=== PATIENT | male | born 1995 | race Caucasian/White ===

== ENCOUNTER 2025-02-19 23:53 | Observation (INO) | payer OTHER, SELFPAY ==
[2025-02-19 18:09] VITALS: BP 164/73; BMI 27.4
[2025-02-19 20:18] LABS: % Basophils 0.6 % (0-2); % Eosinophils 0.6 % (0-6); % Immature Granulocytes 0.6 % (0-0.5); % Lymphocytes 13.5 % (20.5-51.1); % Monocytes 6.1 % (1.7-9.3); % Neutrophils 78.6 % (42.2-75.2); Absolute Basophils 0.1 10^3/uL (0-0.2); Absolute Eosinophils 0.1 10^3/uL (0-0.7); Absolute Immature Granulocytes 0.1 10^3/uL (0-0.05); Absolute Lymphocytes 2.7 10^3/uL (1.2-3.4); Absolute Monocytes 1.2 10^3/uL (0.1-0.6); Absolute Neutrophils 15.4 10^3/uL (1.4-6.5); Hematocrit 55.1 % (39.0-52.0); Hemoglobin 18.8 g/dL (13.0-18.0); Mean Corp Hgb Conc. 34.1 g/dL (33.0-37.0); Mean Corpuscular Hgb 31.8 pg (27.0-31.0); Mean Corpuscular Volume 93.1 fL (80.0-94.0); Mean Platelet Volume 10.1 fL (7.4-10.4); Nucleated Red Blood Cells % 0 % (-); Platelet Count 244 10^3/uL (130-400); Red Blood Cell Count 5.92 10^6/uL (4.70-6.10); Red Cell Dist. Width 13.3 % (11.5-14.5); White Blood Cell Count 19.6 10^3/uL (4.8-10.8)
[2025-02-19] MEDS: XYLOCAINE VISCOUS CUP 15 ML S (20:18)
[2025-02-19 20:32] LABS: ALT (SGPT) 33 U/L (0-50); AST (SGOT) 32 U/L (17-59); Albumin 4.2 g/dl (3.5-5.0); Alkaline Phosphatase 93 U/L (38-126); Blood Urea Nitrogen 11 mg/dl (9-20); Calcium 9.4 mg/dl (8.4-10.2); Carbon Dioxide 31 mmol/L (22-30); Chloride 102 mmol/L (98-107); Estimated Creatinine Clearance 120 ml/min; Glucose 93 mg/dl (70-99); Potassium 4.3 mmol/L (3.5-5.1); Sodium 141 mmol/L (135-145); Total Protein 7.3 g/dl (6.3-8.2); eGFR > 60.00
[2025-02-19 21:25] VITALS: BP 160/81
--- NOTE | 2025-02-19 21:46 | ED.SKININJ ---
HPI-Injury
General
Chief Complaint: Anal/Rectal Problem
Source: patient
Exam Limitations: none
Time Seen by Provider: 02/19/25 19:03
Nursing documentation reviewed up to this point in time: agreed with
History of Present Illness-Injury
Initial Injury comments:
29 yo male with no significant pmhx presents for rectal pain he thinks is from hemorrhoids. Has had no rectal bleeding. He feels a painful lump in the anal area. Denies fever/chills. Denies abdominal pain, denies n/v/d/c.
Past History
Past History
ED Past Medical History: None
ED Past Surgical History: Orthopedic
Social History
Tobacco: Non-smoker
Alcohol: Occasional
Personal: Single
Employment: Employed
Review of Systems
Review of Systems
Allergies reviewed?: Yes
All Other Systems: ROS reviewed and negative except as documented in HPI and ROS
Constitutional: Denies fever or chills
ABD/GI: Reports other (rectal pain); Denies abdominal pain, nausea, vomiting or diarrhea
: Denies dysuria, frequency or difficulty voiding
Musculoskeletal: Reports no symptoms
Skin: Reports no symptoms
Neurological: Reports no symptoms
Phy Exam
Physical Exam
Physical Exam:
GENERAL: No acute distress. A&Ox3.
CONSTITUTIONAL: Afebrile.
EYES: clear, conjunctivae normal
ENMT: moist mucus membranes, Pharynx nl
RESPIRATORY: Regular respirations, nonlabored, lungs clear.
CARDIOVASCULAR: Regular rate and rhythm, no murmurs, no rubs.
GI: Soft, nontender, normal BS
Rectal: No external hemorrhoids, anus and perianal area appear normal, no palpable masses, exquisitely tender to digital exam
MUSCULOSKELETAL: Moves with ease. Well perfused.
SKIN: Warm, dry, pink
PSYCH: Normal mood and affect. Well kept, interactive and appropriate
NEUROLOGIC: Awake, alert and oriented. No focal neurological deficits
Course
Orders/Labs/Results
Orders:
Orders
02/19/25 19:59
CT Abd/Pel (IV only)-DH only Urgent
Comment:
Reason For Exam: mason anal pain
02/19/25 20:07
Complete Blood Count/With Diff Urgent
Comprehensive Metabolic Panel Urgent
02/19/25 20:15
Viscous Lidocaine 2% [Xylocaine Viscous Cup] 15 ml S Q3HPRN STA
02/19/25 22:04
HYDROmorphone [Dilaudid] 1 mg IV NOW STA
Ondansetron Injectable [Zofran] 4 mg IV NOW STA
02/19/25 22:05
0.9% Sodium Chloride 1000 ml [Nss] 1,000 ml IV BOLUS
Piperacillin/Tazo 3.375 Gram [Zosyn] 3.375 gram in 50 ml IV NOW
02/19/25 22:15
CefTRIAXone [Rocephin] 1,000 mg IV NOW STA
MetroNIDAZOLE 500 MG/100 ML [Flagyl 500 mg] 100 ml IV NOW
02/19/25 23:00
Flush (0.9% Sodium Chloride) [Flush (Nss)] See Dose Instructions IV PER PROTOCOL
CR Chest - 2 Views Urgent
Comment:
Reason For Exam: Cough
02/19/25 23:01
Guaifenesin/Dextromethorphan [Robitussin Dm] 10 ml PO NOW STA
02/19/25 23:02
Admit/Transfer Patient As Directed
Co-Sign Provider:
Level of Care: Observation services
Assign to:: Telemetry
Physician / Group: Dr. Jaime Malik
Diagnosis: Perianal abscess
Reason for Telemetry: Other
Other Reason for Telemetry: perianal abscess/sepsis
Date to Stop Telemetry: 02/21/25
Time to Stop Telemetry: 11:00
02/19/25 23:03
PRN Pain Medication Management As Directed
May give lesser potent ordered pain med per pt: Yes
preference::
Protocol:: Medication orders for pain may be administered in a
manner that supports deferring to patient preference
when the pt is:
- Requesting an ordered lesser potent pain medication.
Least to most potent pain medications are defined
as: acetaminophen < NSAID < tramadol < opioids
(morphine, oxycodone, hydromorphone).
- Requesting a lesser dose of the same medication IF
ORDERED.
- Requesting a less intrusive route of administration
if both routes are prescribed by the provider (PO <
IV).
02/19/25 23:10
Code Status As Directed
Resuscitation Status: Full Code
02/19/25 23:23
COVID-19 Antigen Stat
Source: Nasal Swab
Influenza A+B Rapid Molecular Stat
KIMBERLY Source: Nasal Swab
Specimen Description:
02/20/25 00:37
HYDROmorphone [Dilaudid] 0.5 mg IV Q4HPRN PRN
02/21/25 11:00
DC Protocol for Telemetry ONCE
Abnormal Lab Results
02/19/25
20:07
WBC 19.6 H 10^3/uL
(4.8-10.8)
Hgb 18.8 H g/dL
(13.0-18.0)
Hct 55.1 H %
(39.0-52.0)
MCH 31.8 H pg
(27.0-31.0)
Abs Immat Gran (auto) 0.1 H 10^3/uL
(0-0.05)
Absolute Neuts (auto) 15.4 H 10^3/uL
(1.4-6.5)
Absolute Monos (auto) 1.2 H 10^3/uL
(0.1-0.6)
Immature Gran % 0.6 H %
(0-0.5)
Neutrophils % 78.6 H %
(42.2-75.2)
Lymphocytes % 13.5 L %
(20.5-51.1)
Carbon Dioxide 31 H mmol/L
(22-30)
02/19/25 20:07
02/19/25 20:07
Vital Signs
Initial and Last Documented VS:
Initial Vital Signs
Temp Pulse Resp BP Pulse Ox
98.6 F 92 18 164/73 99
02/19/25 18:09 02/19/25 18:09 02/19/25 18:09 02/19/25 18:09 02/19/25 18:09
Last Documented Vital Signs
Temp Pulse Resp BP Pulse Ox
99.6 F 101 18 147/88 97
02/19/25 23:17 02/19/25 23:17 02/19/25 23:17 02/19/25 23:17 02/19/25 23:17
MDM/Problems Addressed
Differential Diagnosis Includes:
perirectal abscess, perianal abscess, hemorrhoids
MDM/Problems Addressed:
29 yo male with no significant pmhx presents for rectal pain he thinks is from hemorrhoids. Has had no rectal bleeding. He feels a painful lump in the anal area. Denies fever/chills. Denies abdominal pain, denies n/v/d/c.
Afebrile, NAD
9:30 p.m.
CBC: WBC 19.10 with a left shift
CMP normal
CAT scan abdomen pelvis with IV contrast radiology report read: IMPRESSION:
There is a 1.8 x 1.7 x 1.5 cm hypodense collection along the posterior aspect of the anal canal, likely perianal abscess.
There is an enteroenteric intussusception within the left mid abdomen without discrete lesion point, however evaluation is limited secondary to lack of oral contrast. There is no evidence of associated obstruction. There is apparent mild wall
thickening within the small bowel in the left juan francisco abdomen which may represent an element of enteritis.
Case discussed with Dr. Ramey
Consulted colorectal surgeon Dr. Sandoval who will have pt admitted to his service, NPO after midnight. Antibiotics started.
*Critical Care Note
Total Time (30-74mins, 75-104mins- exclusive of procedures): Not Applicable
ED Attending Note
-
Portions of this chart may have been created with voice recognition software.� Occasional wrong word or��sound alike� substitutions may have occurred due to the inherent limitations of voice recognition software.
Discharge Plan
Departure
Patient Disposition: Admit
Date of Disposition: 02/19/25
Time of Disposition: 22:19
Admit to: Med/Surg
Presentation/result/management discussed w/ accepting MD/DO: Jaime
Condition: Fair
Discharge Problem:
Perianal abscess
Interventions
Interventions:
*Risk Screen - Suicide Last Done: 02/19/25 18:09
*General Assessment Last Done: 02/19/25 18:09
*Neglect/Abuse Screening Last Done: 02/19/25 18:09
QD-Eznlry-Rqaddhxfeo Assessment Last Done: 02/19/25 18:09
[2025-02-19] MEDS: FLAGYL 500 MG 100 IV (22:24)
[2025-02-19] MEDS: ZOFRAN 4 MG IV (22:24)
[2025-02-19] MEDS: DILAUDID 1 MG IV (22:24)
[2025-02-19] MEDS: NSS 1000 IV (22:25)
[2025-02-19] MEDS: ROCEPHIN 1000 MG IV (22:25)
--- NOTE | 2025-02-19 23:01 | HPS.HSE ---
Addendum entered and electronically signed by Juancho Sandoval MD 02/20/25 14:00:
I saw and examined the patient.
The PA's note was reviewed and I agree with the note.
Comment:
29-year-old male with no PMH who presents with 3 to 4 days of worsening perianal pain, never happened before; WBC 19.6, CT AP demonstrating less than 2 cm perianal abscess in the posterior region, additional finding of small bowel intussusception;
ED unable to palpate abscess on exam and recommended surgical consult; patient denies any N/V or abdominal pain; denies any constipation, diarrhea or hematochezia
Tmax 100.2, VSS, ABD soft, nondistended, nontender, rectal�palpable fluctuance in the left posterior aspect of the perianal region near the anal verge; unable to tolerate KRISTIE
�Admit to colorectal surgery
� Will perform operative incision and drainage due to exquisite pain; discussed with patient and patient amenable
�Continue IV ceftriaxone and Flagyl until surgery
� Pain control with Tylenol and Dilaudid as needed
� DVT PPx with Lovenox
� OOB/IS
Original Note:
Family Physician
-
Family Physician: * NONE
Chief Complaint
-
Rectal pain
History of Present Illness
29 years old male with no PMH, present in ER with a complain of rectal pain. Per patient, rectal pain started last Tuesday when start coughing that triggers his pain, then he started to feel painful lump in the anal area. He thought that hemorrhoid
pain. Patient was not able to sit, walk or get in a comfortable position. Symptoms was associated with chills.
Patient noted with frequent cough during the exam that makes his rectal pain worse. Patient Denies, rectal bleeding, diarrhea, constipation, nausea, vomiting, fever, abdominal pain, sob, chest pain or any other symptoms. Patient with no prescribed
meds at home.
Medical History
Past Medical History
Past Medical History: Reports Other (Plantar fasciitis)
Past Surgical History: Reports Orthopedic (LT tibia fracture open reduction &internal fixation )
Social History
Tobacco: Non-smoker
Alcohol: Occasional
Drug: Marijuana (Occasionally )
Personal: Other
Living: With Family
Employment: Employed
Family History
Family History: Not pertinent
Allergies / Home Medications
Allergies reflects when Allergies were last updated in [employer].
Home Medications with original date entered in [employer]
Allergy/Medication List:
Patient Allergies
Allergy/AdvReac Type Severity Reaction Status Date / Time
No Known Allergies Allergy Verified 02/19/25 18:08
Home Medications Table - record
�Medication �Instructions �Recorded �Confirmed
No Meds [No Current Medications] 10/25/18 02/19/25
Review of Systems
-
History Source: Patient
A 12 point ROS was completed and negative except as noted: Yes
Constitutional: Reports No Symptoms
EENT: Reports No Symptoms
Respiratory: Reports Cough
Cardiac: Reports No Symptoms
Abdomen/GI: Reports Other (Rectal pain )
: Reports No Symptoms
Musculoskeletal: Reports No Symptoms
Skin: Reports No Symptoms
Neurological: Reports No Symptoms
Psych: Reports Calm
Physical Exam
Vital Signs
Vital Signs
Temp Pulse Resp BP Pulse Ox
98.6 F 93 18 160/81 99
02/19/25 18:09 02/19/25 21:25 02/19/25 21:25 02/19/25 21:25 02/19/25 21:25
Physical Exam
General: No Apparent Distress
Respiratory: Clear
Cardiac: Regular Rhythm
GI: Soft, Non Tender and Non Distended
Rectal: Deferred by Provider (Rectal exam done by ER Provider ) and Other
Musculoskeletal: No Edema
Neuro: Awake and AO x 3
Psych: Calm
Laboratory Results
-
02/19/25 20:07
02/19/25 20:07
Laboratory Results
Total Bilirubin 1.0 mg/dl (0.2-1.3) 02/19/25 20:07
AST 32 U/L (17-59) 02/19/25 20:07
ALT 33 U/L (0-50) 02/19/25 20:07
Alkaline Phosphatase 93 U/L (38-126) 02/19/25 20:07
Data Reviewed
-
CT Scan: Discussed with Patient
Lab Data: Discussed with Patient
Impression/Plan
-
Abdomen/Pelvis CT shows
There is a 1.8 x 1.7 x 1.5 cm hypodense collection along the posterior aspect of the anal canal, likely perianal abscess.
There is an enteroenteric intussusception within the left mid abdomen without discrete lesion point, however evaluation is limited secondary to lack of oral contrast. There is no evidence of associated obstruction. There is apparent mild wall
thickening within the small bowel in the left hemiabdomen which may represent an element of enteritis.
WBC 19.6
IMPRESSION:
perianal abscess
PLAN:
Admit/observation/ ( / Colorectal services)
NPO
IVF
analgesics as needed
Abx
Cough
Covid &flu (Neg)
Chest x-ray ordered.
PRN Robitussin.
DVT prophylaxis Lovenox sq
Code status Full code
[2025-02-19 23:17] VITALS: BP 147/88
[2025-02-19] MEDS: FLUSH (NSS) 1 FLUSH IV (23:21)
[2025-02-19] MEDS: ROBITUSSIN DM 10 ML PO (23:21)
[2025-02-19 23:57] LABS: COVID-19 Antigen Negative (Negative)
[2025-02-20] VITALS (12 sets, daily range): BP systolic 14–161; BP diastolic 52–95; BMI 27.1
[2025-02-20] MEDS: DILAUDID 0.5 MG IV ×4 (00:42→16:49)
[2025-02-20] MEDS: NSS 1000 IV (01:31)
[2025-02-20] MEDS: TYLENOL 650 MG PO (02:45)
[2025-02-20] MEDS: DILAUDID 0.25 MG IV ×2 (07:53→11:54)
[2025-02-20] MEDS: FLAGYL 500 MG 100 IV (09:00)
--- NOTE | 2025-02-20 09:28 | W.PN.CRS1 ---
Today's Communication / Plan
-
OR today for incision and drainage of perianal abscess
N.p.o.
IV antibiotics
Assessment/Plan
-
Assessment: 29-year-old male with rectal pain for the past 5 days along with fevers and chills, found to have a 1.8 x 1.7 x 1.5 cm hypodense collection along the posterior aspect of the anal canal, likely perianal abscess. Also noted was
enteroenteric intussusception within the left mid abdomen without discrete lesion point.
Plan:
-OR today with Dr. Sandoval for an incision and drainage of the perianal abscess
-IV antibiotics
-N.p.o. with IV fluids
-D/C laxatives
-Discussed finding of intussusception with the patient. Will need this worked up further as an outpatient. He is already scheduled for an appointment with Dr. Sandoval on February 28.
Subjective Data
Subjective Data
Date of Service: February 20, 2025
Patient states his pain started about 5 days ago. This is never happened before. The patient thought it was a hemorrhoid and called urgent care 3 days ago. He was started on sitz bath's and Tylenol. He denies abdominal pain, nausea vomiting, or
change in bowel movements. He has had the chills and sweats and is not sure and a fever. He has not noticed any blood in his stool. He never had a colonoscopy.
Objective Data
-
Vital Signs
Temp Pulse Resp BP Pulse Ox
99.3 F 89 16 137/75 99
02/20/25 07:30 02/20/25 07:30 02/20/25 07:30 02/20/25 07:30 02/20/25 08:05
Lab Results
02/19/25 20:07
02/19/25 20:07
Physical Exam
-
General: No Acute Distress and AOx3
Abdomen: Soft, Non Distended and Non Tender
Rectal: Other (Pain on palpation posteriorly of the anus, fluctuance noted. No erythema. Unable to perform KRISTIE due to pain.)
Skin: Warm and Dry
--- NOTE | 2025-02-20 10:17 | CM ---
Reviewed the chart notes and spoke with the patient at the bedside. The patient is admitted under observational status. The observation letter was provided and explained. The patient had no questions with regards to the letter.
The patient resides with his spouse and two children in a two story home with two steps to enter. The patient reports no DME/VN/SNF in the past. The patient confirmed his pharmacy of choice is the [facility]. The patient
anticipates going to OR today for incision and drainage of perianal abscess. CM continues to be available to patient/family and is monitoring medical plan for needs at discharge.
Plan: Discharge plans will depend on the patient's progress.
--- NOTE | 2025-02-20 12:33 | PTCARENOTE ---
Patient to OR for perianal abscess I+D. Chart in bed with patient, IVF capped, fresh gown and CHG wipes provided prior to transport.
--- NOTE | 2025-02-20 14:00 | W.IMMPOSTOP ---
Surgical Immed Post Op Note
-
Primary Surgeon: Juancho Sandoval MD
Assisting Surgeon: None
Pre-op Diagnosis: Perianal abscess
Post-op Diagnosis: Perianal abscess
Procedure Performed: Incision and drainage of perianal abscess, bilateral pudendal nerve block
Anesthesia Type: Sedation with local
Specimen / Cultures: None
Estimated Blood Loss: 5 mL
Complications: None
Operative Findings: Left posterior abscess with drainage of about 10 cc of pus; anal canal otherwise without pathology; probed to the abscess and no identifiable fistula, although mucosa was quite thin in the posterior midline
--- NOTE | 2025-02-20 14:02 | OR.RPT ---
Operative Report
Operative Report
DATE OF OPERATION: 02/20/2025
SURGEON: Juancho Sandoval MD
PREOPERATIVE DIAGNOSIS: Perianal abscess
POSTOPERATIVE DIAGNOSIS: Perianal abscess
OPERATION: Incision and drainage of perianal abscess, bilateral pudendal nerve block
ASSISTANTS:
1. None
ANESTHESIA: Sedation with local
ESTIMATED BLOOD LOSS: 5 mL
FINDINGS:
1. Left posterior abscess about 2 cm in size close to the anal verge; evacuated about 10 cc of pus
2. Probed the abscess cavity and no identifiable internal open
SPECIMENS:
1. None
DRAINS: None
COMPLICATIONS: No immediate complications.
INDICATIONS: The patient is a 29-year-old male who presented with 3 to 4 days of perianal pain, found to have a perianal abscess on CT. Due to the exquisite pain, I recommended operative incision and drainage. The operation was discussed with the
patient in detail, including the risks, benefits and alternatives. Risks described included, but not limited to bleeding, infection, urinary retention, damage to nearby structures such as the anal sphincter, fecal incontinence, recurrence, discovery
of fistula requiring fistulotomy versus seton placement and anesthetic risks. The patient understood and agreed to proceed. The consent was signed and placed in the chart.
PROCEDURE IN DETAIL: The patient was taken to the operating room. Sequential compression devices were placed bilaterally. The patient was placed on the operating table in prone position. Sedation was commenced without complication. Two seat belts
were secured around the legs and upper back. The buttocks were taped apart. The perineum was shaved, prepped and draped in the usual fashion. A time-out was performed verifying the correct patient, procedure, operative site, positioning, and
special equipment.
Local anesthesia used was a mixture of 60 mL of 0.25% Marcaine with epinephrine and 0.6 mg of dexamethasone. 40 mL was injected perianally at the beginning of the case. The anorectal exam was performed assessing all four quadrants of the anal canal
using Hill-Kirby retractors in progressively increasing size. Externally, there was a fluctuant area of about 2 cm in the left posterior region adjacent to the anal verge. The anal canal was without any significant pathology. There were no
masses and there was no proctitis. There was no evident internal openings.
Using electrocautery, I created an elliptical incision at the most fluctuant spot that was closest to the anal verge. About 10 mL of purulent drainage was immediately encountered. The abscess cavity was digitally probed and loculations were broken
up. It was copiously irrigated with saline. Hemostasis was confirmed. The abscess cavity was probed with fistula probes. No internal opening was identified within the anal canal. Although, posteriorly, the anal mucosa was quite thin. The
remaining 20 mL of local were injected. 5 mL was injected bilaterally for a pudendal nerve block. 10 mL was injected around the surgical site and perianally. Hemostasis was reassessed once more using the small Hill-Kirby and was confirmed.
At this point, the procedure was complete. All needle, sponge and instrument counts were correct. The patient tolerated the procedure well. The area was dressed with gauze and tape.
DICTATED BY: Juancho Sandoval MD
--- NOTE | 2025-02-20 15:05 | W.DS.TRANS ---
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
-
Discharge Instructions:
Discharge Diagnosis/Procedures anal abscess
Diet Regular
Activity As tolerated
Driving Restrictions No driving for 24 hours
Bathing Restrictions OK to Shower
Wound Care -Sitz baths twice a day for 7 days with warm
water. 10 minutes at a time.
-Cover incision with gauze as needed to protect
underwear.
-Stool softeners as needed.
-Daily fiber supplement.
-Tylenol or ibuprofen for pain management.
Maximum dose of Tylenol is 4000 mg in 24 hours.
Maximum dose of ibuprofen is 300 mg 24 hours.
Instructions: How to take a sitz bath
Anal abscess and fistula - Discharge instructions
Stand-Alone Forms:
Changes to Home Medications: Yes
Discharge Medications:
DC Medications w/original date entered in [facility]
No Meds [No Current Medications] 10/25/18
naproxen 500 mg tablet (Naprosyn) 500 mg PO BID 7 days #14 tabs 02/20/25
Home Medication Changes
naproxen 500 mg tablet (Naprosyn) 500 mg PO BID 7 days #14 tabs 02/20/25
Pending Results: No
--- NOTE | 2025-02-20 15:39 | PTCARENOTE ---
Received patient from PACU s/p perianal abscess I+D. VSS, patient c/o mild discomfort to perianal area but denies need for pain medication at this time. Regular diet order entered per colorectal, patient to be discharged this evening. Spouse at
bedside.
--- NOTE | 2025-02-20 17:39 | PTCARENOTE ---
Patient discharged home, transported by spouse. Patient in bathroom for BM prior to DC, dressing to perianal area changed by this RN, small amount of serosanguineous drainage on gauze pads, patient c/o moderate discomfort to perianal area, medicated
with PRN IV dilaudid - see MAR. Vitals stable. This RN reviewed discharge instructions with patient and spouse at bedside, both verbalized understanding of instructions including sitz baths, no driving for 24 hours, and pain management regimen per
colorectal. Patient advised to use fiber supplements/stool softeners PRN for BMs per colorectal, educated on signs to notify MD for including fever, increased pain/drainage from site; patient verbalized understanding. Patient with f/u with Dr. Sandoval
already scheduled for 02/28. This RN provided patient with gauze pads to pad perianal area/protect underwear. IV and tele pack removed. Patient dressed independently and gathered belongings in room, transported down to spouse's car via staff escort
and wheelchair.
== END 2025-02-20 17:25 | disposition home or self-care (01) ==
LOC: 2 NORTH 23:53
PROVIDERS: Nurse Practitioner Family; Registered Nurse; ADMITTING PHYSICIAN Surgery; EMERGENCY PHYSICIAN Emergency Medicine
PROC: 0D9Q0ZZ Drainage of Anus, Open Approach (ICD-10-PCS; 2025-02-20)
DX: K61.2 Anorectal abscess (principal); K62.89 Other specified diseases of anus and rectum; K56.1 Intussusception
CPT/HCPCS: 46050; 71046; 74177; 80053; 85025; 87502; 87811; 96361; 96374; 96375; 99285; G0378; Q9967

== ENCOUNTER → 2025-03-04 16:25 | Outpatient (REF) | payer OTHER, SELFPAY | LOC: RAD 16:25 | PROVIDERS: ATTENDING PHYSICIAN Surgery; FAMILY PHYSICIAN Family Medicine | DX: K56.1 Intussusception (principal) | CPT/HCPCS: 74177; Q9967 ==

== ENCOUNTER 2025-08-02 06:00 | Day surgery (SDC) | payer OTHER, SELFPAY ==
[2025-07-19 07:29] VITALS: BMI 26.3
[2025-07-19 09:12] LABS: Hematocrit 51.5 % (39.0-52.0); Hemoglobin 17.6 g/dL (13.0-18.0); Mean Corp Hgb Conc. 34.2 g/dL (33.0-37.0); Mean Corpuscular Volume 92.8 fL (80.0-94.0); Platelet Count 250 10^3/uL (130-400); Red Cell Dist. Width 12.7 % (11.5-14.5)
[2025-07-19 09:27] LABS: APTT 28.8 Sec (23.4-35.0); INR 1.05; PT 14.0 Sec (11.4-14.6)
[2025-07-19 10:11] LABS: Glycohemoglobin (HgbA1c) 5.2 % (4.0-5.6)
[2025-07-19 10:33] LABS: ALT (SGPT) 49 U/L (0-50); AST (SGOT) 52 U/L (17-59); Albumin 4.6 g/dl (3.5-5.0); Alkaline Phosphatase 81 U/L (38-126); Blood Urea Nitrogen 16 mg/dl (9-20); Calcium 9.5 mg/dl (8.4-10.2); Carbon Dioxide 31 mmol/L (22-30); Chloride 99 mmol/L (98-107); Estimated Creatinine Clearance 111 ml/min; Glucose 93 mg/dl (70-99); Potassium 4.3 mmol/L (3.5-5.1); Sodium 137 mmol/L (135-145); Total Protein 7.4 g/dl (6.3-8.2); eGFR > 60.00
[2025-08-02] VITALS (13 sets, daily range): BP systolic 114–156; BP diastolic 66–91; BMI 26.3
[2025-08-02] MEDS: TYLENOL 1000 MG PO ×3 (06:39→17:23)
[2025-08-02] MEDS: CELEBREX 200 MG PO (06:39)
[2025-08-02] MEDS: RELISTOR 12 MG SC (06:40)
[2025-08-02] MEDS: HEPARIN 5000 UNITS SC (06:40)
[2025-08-02] MEDS: LYRICA 150 MG PO (06:40)
[2025-08-02] MEDS: NORMOSOL-R/PLASMALYTE-A 1000 IV (06:41)
--- NOTE | 2025-08-02 09:53 | W.IMMPOSTOP ---
Addendum entered and electronically signed by Juancho Sandoval MD 08/02/25 10:28:
updated spouse over the phone
Original Note:
Surgical Immed Post Op Note
-
Primary Surgeon: Juancho Sandoval MD
Assisting Surgeon: CARLY Lozano
Pre-op Diagnosis: Small bowel intussusception
Post-op Diagnosis: Small bowel intussusception
Procedure Performed: Laparoscopic small bowel resection
Anesthesia Type: General
Specimen / Cultures: Small bowel resection
Estimated Blood Loss: 15 mL
Complications: None
Operative Findings: Obtained access via Veress technique at Fox's point; placed 3 ports along the right lateral abdomen; identified ligament of Treitz and ran the small bowel; identified an area of intussuscepted small bowel in the distal
jejunum/proximal ileum; intussusception was 2 to 3 cm in length and reduced with light traction; place clips on the mesentery at site of intussusception; ran the remainder of the bowel and no lesions identified; created a 2 cm extraction site in
infraumbilical position; palpated small bowel at site of intussusception and no palpable mass identified; ran the small bowel from the ligament of Treves to the ligament of Treitz, palpating the entire length and no palpable masses identified;
resected small bowel 10 cm proximal and distal to site of intussusception and resected pedicle of mesentery with the LigaSure; performed [id number] antiperistaltic stapled anastomosis with JULIAN 80 with purple loads and TA 60 with a blue load;
placed a crotch stitch with 3-0 Vicryl and closed mesenteric defect with running 2-0 Vicryl; closed peritoneum with 0 Vicryl and fascia with 0 Stratafix; irrigated and closed skin with 4 Monocryl and Dermabond
--- NOTE | 2025-08-02 10:00 | OR.RPT ---
Operative Report
Operative Report
DATE OF OPERATION: 08/02/2025
SURGEON: Juancho Sandoval MD
PREOPERATIVE DIAGNOSIS: Small bowel intussusception
POSTOPERATIVE DIAGNOSIS: Small bowel intussusception
OPERATION: Laparoscopic small bowel resection
ASSISTANTS:
1. CARLY Lozano
ANESTHESIA: General
ESTIMATED BLOOD LOSS: 15 mL
UOP: 150 mL
IVF: 1.1 L
FINDINGS:
1. Identified a 2-3 cm intussusception in the distal jejunum/proximal ileum; resected with 10 cm margins
2. Performed stapled [id number] antiperistaltic anastomosis
SPECIMENS:
1. Small bowel resection
DRAINS: None
COMPLICATIONS: No immediate complications.
INDICATIONS: The patient is a 30-year-old male who initially presented to the [facility] with perianal pain and was found to have a perianal abscess. On CT scan, he was incidentally found to have a small bowel intussusception. He underwent
incision and drainage of the abscess and recovered well. A repeat CT scan was done, which confirmed that the intussusception had not resolved on its own. Therefore, I recommended surgery due to the elevated risk of a lead point in adult patients.
I explained that a lead point could be a benign or malignant etiology. He was having intermittent symptoms of postprandial bloating and nausea, but postponed surgery due to personal conflicts. Ultimately, he returned a few months later with
persistent symptoms and was agreeable to surgery. The operation was discussed with the patient in detail, including the risks, benefits and alternatives. Risks described included, but not limited to, bleeding, infection, anastomotic leak, injury to
nearby structures, inability to identify the intussusception, incisional hernia, future adhesive bowel obstruction and anesthetic risks. The patient understood and agreed to proceed.
PROCEDURE IN DETAIL: The patient was taken to the operating room and placed on the operating table in supine position. Sequential compression devices were placed bilaterally. General anesthesia was induced and the patient was intubated without
complication. The patient was placed in supine position with the bilateral arms tucked. Veras catheter was placed with sterile technique. Anesthesia placed a nasogastric tube. Preoperative antibiotics were given. The abdomen was shaved, prepped
and draped in a sterile fashion. A marking pen was used to lul out the midline. A time-out was performed verifying the correct patient, procedure, operative site, positioning, and special equipment.
A stab incision was made with an 11 blade scalpel in [facility]. A Veress needle was used to gain access. After 3 clicks, insufflation was attached and the opening pressure was less than 8 mmHg. The abdomen was insufflated to 12 mmHg and the
patient tolerated this well. An 8 mm incision was made in the lateral right mid-abdomen. An 8 mm robotic trocar was advanced. The robotic endoscope was inserted and the abdomen was explored. There was no injury from the Veress needle or from
port placement. Two additional 8 mm robotic ports were placed in the right lower quadrant and suprapubic position under direct visualization, taking care to avoid injury to the epigastric vessels or bladder.
Using atraumatic laparoscopic graspers, the omentum was retracted over the transverse colon and the transverse colon was retracted cephalad. The bowel was assessed and no obvious intussusception was identified. Therefore, I proceeded with running
of the bowel. I identified the ligament of Treitz and ran the bowel distally. At approximately the distal jejunum/proximal ileum, I identified a section of small bowel with intussusception of about 2 to 3 cm in length. I placed a 5 mm
laparoscopic clip at this point and marked the bowel wall with a purple marker. There were no other concerning findings along the entire length of the small bowel. The terminal ileum had some filmy adhesions to the right pelvic brim, which I left
in place. The appendix and cecum appeared normal. Based on his CT scan and symptoms, I was expecting a more severe intussusception. This intussusception reduced easily with light traction. Therefore, I unscrubbed and reviewed the CT scan images
once more to estimate the location of the intussusception seen radiographically. The radiographic images appeared to correlate with the intussusception that I identified in the area of the distal jejunum/proximal ileum. Although the
intussusception was not as prominent as I was expecting, I felt it necessary to resect this portion as there was clear evidence of intussusception.
I created a 3 cm infraumbilical midline incision for an extraction site using a 15 blade scalpel. I took this down through the subcutaneous tissue with electrocautery and hemostasis was assured. I incised the fascia and encountered rectus muscle.
I confirmed that I was in the midline. His linea alba was minuscule and the rectus muscles nearly apposed each other. I grasped the peritoneum with Kellys and entered using Metzenbaum scissors. I extended the fascial incision to the length of the
skin incision. I placed a small Azam and eviscerated the loop of small bowel with my markers. I palpated the area where the intussusception was and I was unable to palpate any mass or lesion. Therefore, I ran the bowel again palpating for any
concerning masses. Starting at the terminal ileum, I ran the entire length of the small bowel to the ligament of Treitz while palpating. I did not identify any concerning mass or lesion.
I proceeded with a small bowel resection of the area of intussusception. I placed blue towels to isolate the bowel from the operative field. I measured 10 cm proximal and distal. I created holes in the mesenteric border and stapled the bowel with
the JULIAN 80 stapler with purple loads. The staple lines were hemostatic. I divided the mesentery with the Ligasure, taking an adequate flap for lymphadenectomy. I cut the antimesenteric corners of the staple lines and placed the JULIAN 80 stapler
within the enterotomies. I aligned the antimesenteric portion of the each limb and fired the stapler. The staple line was evaluated and was hemostatic. I closed the common enterotomy with Allis clamps. I stapled the common enterotomy closed with
a TA 60 with a blue load. The staple line had a couple of points of oozing, which were controlled with 3-0 Vicryl stitches in a [id number] fashion. I placed a 3-0 Vicryl crotch stitch. I closed the mesenteric defect with a running 2-0
Vicryl. The small bowel anastomosis was returned to the abdomen. The abdomen was examined and there was no concern for bleeding.
I closed the peritoneum with a running 0 Vicryl. I closed the fascia with a running 0 stratafix. There was a knuckle of subcutaneous tissue that had pulled into the Stratafix stitch, causing a bump in the skin. I released the subcutaneous tissue
from the fascial closure and removed the knuckle. The skin was now flat. The subcutaneous tissue was irrigated. The skin was closed with 4-0 Monocryl in a subcuticular running fashion and dressed with Dermabond.
At this point, the procedure was complete. The patient was awoken and extubated without complication. The veras and nasogastric tube were removed. All needle, sponge and instrument counts were reported as correct. The patient tolerated the
procedure well and was transferred to the recovery room in stable condition.
DICTATED BY: Juancho Sandoval MD
[2025-08-02] MEDS: DILAUDID 0.25 MG IV (10:24)
[2025-08-02] MEDS: ZOFRAN 4 MG IV (10:29)
--- NOTE | 2025-08-02 12:28 | PTCARENOTE ---
Patient admitted from [facility] post small bowel resection for fistula.They also found he had an introsusception of the small bowel as well.The patient is alert and oriented.All 5 laparoscopic sites are open to air without drainage.Vital signs are
stable.The patient is in his bed with the call solorio in place.His is at the bedside.
[2025-08-02] MEDS: TORADOL 15 MG IV ×2 (12:47→17:24)
--- NOTE | 2025-08-02 19:02 | W.PN.UPDATE ---
Update Note
Progress Note Update
Just checked on patient. He is doing well. He had some nausea in the recovery room, but denies nausea now. Tolerated solid food for dinner. Pain controlled. Discussed discharge home tonight versus tomorrow morning patient. Patient is
comfortable going home tonight. Still no flatus or BMs. I explained that bowel function should occur within the next day or 2. If he develops any N/V, abdominal bloating or worsening pain, he should come back to the ED. If he has blood in his
stool, he should keep an eye on this. If the bleeding improves with each BM, this is normal. If the bleeding persists more than a day or 2 or gets worse, he should come to the ED. All questions were answered and the patient was appreciative.
== END 2025-08-02 20:15 | disposition home or self-care (01) ==
LOC: SDS 06:00
PROVIDERS: ATTENDING PHYSICIAN Surgery; FAMILY PHYSICIAN Internal Medicine
DX: K56.1 Intussusception (principal)
CPT/HCPCS: 44202; 36415; 71046; 80053; 83036; 85027; 85610; 85730; 86850; 86900; 86901; 88307; 93005